=== PATIENT | female | born 1975 | race African-American/Black ===

== ENCOUNTER 2016-09-05 23:03 | Emergency (ER) | payer OTHER ==
[~2016-09-05] VITALS: Ht 162.6 cm; Wt 101.2 kg
[~2016-09-05 23:03] MED LIST: CEPH250C2; HYDR-1421; IBU100LQ; SULF400T11
[2016-09-05 23:30] VITALS: BP 147/88
[2016-09-06] MEDS ORDERED: KETOROLAC TROMETH 60MG/2ML VIAL IM ONE (01:45)
== END 2016-09-06 02:16 | disposition home or self-care (01) ==
LOC: ER 23:05
DX: S46.912A Strain of unspecified muscle, fascia and tendon at shoulder and upper arm level, left arm, initial encounter (principal); W18.39XA Other fall on same level, initial encounter; Y93.89 Activity, other specified; Y99.8 Other external cause status; Y92.89 Other specified places as the place of occurrence of the external cause
CPT/HCPCS: 73030; 96372; 99284; J1885